=== PATIENT | female | born 1950 | race Caucasian/White ===

== ENCOUNTER 2017-03-20 10:50 | Emergency (ER) | payer MEDICARE, OTHER ==
[2017-03-20 11:01] VITALS: BP 155/97
--- NOTE | 2017-03-20 11:17 | ERNOTE ---
ENT HPI Date of Service: 03/20/17 Presenting Symptoms: eye pain Time Seen by Provider: 03/20/17 11:02 Source: patient Exam Limitations: no limitations - Immun/Allergies/Home Medications Immunizations: IMMUNIZATION HX Immunizations Up to Date Yes History of Influenza Vaccine No Allergies/Adverse Reactions: Allergies Allergy/AdvReac Type Severity Reaction Status Date / Time Sulfa (Sulfonamide Allergy Verified 03/20/17 11:01 Antibiotics) Home Medications: HOME MEDICATIONS Gentamicin Sulfate [Gentamicin 0.3% Ophthalmic Solution] 1 drop OP 5XD #1 btl [Last Taken Unknown] - History of Present Illness Narrative: Pt. comes in with c/o R eye pain and irritation after she felt something blow into her eye while she was on a walk an hour ago. Pt. denies ant blurred or double vision or headache. Pt. denies any alleviating factors, aggravating factors, but states taht she flushed it prior to arrival. Review of Systems - Review of Systems Constitutional: Present: no symptoms reported. Absent: recent illness, fever, chills, weakness, fatigue, malaise EYE: Present: eye pain, tearing. Absent: eye discharge, blurred vision, double vision, vision changes ENT: Present: no symptoms reported Respiratory: Present: no symptoms reported. Absent: shortness of breath, cough , wheezing Cardiology: Present: no symptoms reported. Absent: chest pain, palpitations, edema Gastrointestinal/Abdominal: Present: no symptoms reported Genitourinary: Present: no symptoms reported Musculoskeletal: Present: no symptoms reported. Absent: back pain, joint pain Skin: Present: no symptoms reported Neurological: Present: no symptoms reported. Absent: headache, numbness, tingling, tremors All Other Systems: All systems neg except as marked - Patient's Past Medical History Patient History - Medical: No pertinent hx Patient History - Cardiac/Respiratory: No pertinent hx Patient History - Cancer: No Hx of Cancer Patient History - Surgical Procedures: Cholecystectomy, - Social History Psych History: No pertinent hx Smoking Status: Never smoker Have you smoked in the past 12 months: No - Immunizations Immunizations Up to Date: Yes History of Influenza Vaccine: No Physical Exam - Physical Exam General Appearance: Present: wd/wn, alert, no apparent distress Head Exam: Present: normal inspection, no evidence of injury Eye Exam: Normal inspection: left, PERRL: bilateral, EOMI: bilateral, Sclera injection: right, Other: left - flourescein exam WNL Ears, Nose, Throat: Present: normal ENT inspection, normal pharynx Neck: Present: normal inspection, nontender. Absent: lymphadenopathy (R), lymphadenopathy (L) Respiratory: Present: no respiratory distress, normal breath sounds, no accessory muscle use, chest nontender, lungs clear Cardiovascular/Chest: Present: regular rate, rhythm, no murmur, normal peripheral pulses Extremity Exam: Present: normal inspection Neurological Exam: Present: alert, oriented, normal mood/affect, no motor/ sensory deficits Skin Exam: Present: normal color, warm/dry. Absent: pallor, skin rash ED Progress - Vital Signs Patient's Vital Signs:: I have reviewed the patient's vital signs. Vital Signs: Vital Signs 03/20/17 10:50 Temperature 36.9 C Pulse Rate 79 Respiratory 14 Rate Blood Pressure 155/97 O2 Sat by Pulse 96 Oximetry - Progress/Reassessment Chief Complaint: Eye Injury/Trauma Progress:: Unchanged Departure Clinical Impression: Conjunctivitis Qualifiers: Conjunctivitis type: acute Acute conjunctivitis type: unspecified Laterality: right Qualified Code(s): H10.31 - Unspecified acute conjunctivitis, right eye - Departure Disposition: Home self-care Condition: Good Instructions: Chemical Conjunctivitis, [id number] Additional Instructions: Please follow up with senior sql server developer in 2-3 days if not improved. Referrals: Dana Rose MD [Primary Care Provider] - Prescriptions: Gentamicin Sulfate [Gentamicin 0.3% Ophthalmic Solution] 1 drop OP 5XD #1 btl
== END 2017-03-20 11:17 | disposition home or self-care (01) ==
LOC: ER 10:50
DX: H10.31 Unspecified acute conjunctivitis, right eye (principal)